=== PATIENT | female | born 1940 | race Caucasian/White ===

== ENCOUNTER 2018-08-13 10:36 | Outpatient (CLI) | payer OTHER | END 2018-08-13 10:37 | disposition home or self-care (01) | LOC: RAD 10:36 ==

== ENCOUNTER 2018-10-29 09:46 | Emergency (ER) | payer OTHER ==
[2018-10-29 09:59] VITALS: BMI 34.7
--- NOTE | 2018-10-29 10:28 | ED PDOC ---
Arrival/HPI - General Chief Complaint: Finger,Hand,&Wrist Time Seen by Provider: 10/29/18 09:54 Historian: Patient - History of Present Illness Narrative History of Present Illness (Text): 10/29/18 10:20 78-year-old female presents today with a one-week history of left wrist pain. Patient states 1 week ago she fell injuring the left wrist. Patient states she went to her doctor and had outpatient x-rays of the left wrist done on 10/23/18. Since then the patient has been in a left wrist Velcro splint. Patient received a call today that there was a possible fracture and the patient needs a CAT scan of the wrist for further evaluation. Patient presents today requesting CAT scan of the wrist due to continued pain of the left wrist status post fall. Patient denies numbness or tingling in the extremity. She is complaining of severe pain over the radial aspect of the wrist. She has limited range of motion of the wrist. Patient states the pain radiates up into the forearm. Patient states she has been taking Tylenol with codeine for pain. Past Medical History - Provider Review Nursing Documentation Reviewed: Yes - Travel History Have you recently traveled outside [place] w/in the past 3 mons?: No - Infectious Disease Hx of Infectious Diseases: None - Tetanus Immunization Tetanus Immunization: Unknown - Reproductive Menopause: Yes - Cardiac Hx Cardiac Disorders: Yes ((Denies hx. of cardiac stent)) Hx Hypertension: Yes Other/Comment: - Irregular heart beat. - Dyslipidemia - Pulmonary Hx Respiratory Disorders: No (Denies hx. of Asthma or COPD) - Neurological Hx Neurological Disorder: Yes HX Cerebrovascular Accident: Yes (06/05/17: Acute Ischemic Stroke) - HEENT Hx Cataracts: Yes (Cataract surgery (left eye)) Hx Glaucoma: Yes - Endocrine/Metabolic Hx Diabetes Mellitus Type 2: Yes - Hematological/Oncological Hx AIDS: No - Musculoskeletal/Rheumatological Hx Back Pain: Yes (Chronic back pain) - Gastrointestinal Hx Constipation: Yes (Chronic constipation) - Psychiatric Hx Substance Use: No - Surgical History Hx Appendectomy: Yes Hx Cataract Extraction: Yes (Cataract surgery (left eye)) Other/Comment: - Partial colon resection for abscess (per dgt: 2/3 instestine removed). - Surgery of the pancreas. - - Anesthesia Hx Anesthesia: Yes Hx Anesthesia Reactions: No Hx Malignant Hyperthermia: No Family/Social History - Physician Review Nursing Documentation Reviewed: Yes Family/Social History: Unknown Family HX Smoking Status: Former Smoker Hx Alcohol Use: No Hx Substance Use: No Allergies/Home Meds Allergies/Adverse Reactions: Allergies Penicillins Allergy (Severe, Verified 10/29/18 10:17) SWELLING Swelling of throat and shortness of breath Home Medications: Home Meds Medication Instructions Recorded Confirmed Apixaban [Eliquis] 5 mg PO BID 06/08/17 06/08/17 Aspirin [Aspirin Chewable] 81 mg PO DAILY 06/08/17 06/08/17 Atorvastatin [Lipitor] 40 mg PO HS 06/08/17 06/08/17 Docusate Sodium [Colace] 100 mg PO BID PRN 06/08/17 06/08/17 Pantoprazole Sodium [Protonix] 40 mg PO DAILY 06/08/17 06/08/17 Valsartan [Diovan] 320 mg PO DAILY 06/08/17 06/08/17 diltiaZEM [Cardizem] 120 mg PO DAILY 06/08/17 06/08/17 Review of Systems - Review of Systems Constitutional: absent: Fatigue, Fevers Respiratory: absent: SOB, Cough Cardiovascular: absent: Chest Pain, Palpitations Gastrointestinal: absent: Abdominal Pain, Nausea, Vomiting Musculoskeletal: Arthralgias (left wrist pain) Psychiatric: absent: Anxiety, Depression Physical Exam Vital Signs Reviewed: Yes Vital Signs Temp Pulse Resp BP Pulse Ox 10/29/18 09:59 98.4 F 67 18 117/73 96 Temperature: Afebrile Blood Pressure: Normal Pulse: Regular Respiratory Rate: Normal Appearance: Positive for: Well-Appearing, Non-Toxic, Comfortable Pain Distress: None Mental Status: Positive for: Alert and Oriented X 3 - Systems Exam Head: Present: Atraumatic Mouth: Present: Moist Mucous Membranes Neck: Present: Normal Range of Motion Respiratory/Chest: Present: Clear to Auscultation, Good Air Exchange. No: Respiratory Distress, Accessory Muscle Use Cardiovascular: Present: Regular Rate and Rhythm, Normal S1, S2. No: Murmurs Upper Extremity: Present: NORMAL PULSES, Tenderness (left wrist; + ttp over snuff box, radial aspect. + edema), Swelling, Neurovascularly Intact. No: Normal ROM (decreased flexion/extension of wrist, decreased supination. ), Erythema Neurological: Present: GCS=15, Speech Normal Skin: Present: Warm, Dry, Normal Color. No: Rashes Psychiatric: Present: Alert, Oriented x 3 Medical Decision Making ED Course and Treatment: 10/29/18 10:23 Patient nontoxic well-appearing in no distress with stable vital signs. Patient is currently in velcro splint Patient has outpatient x-ray of the wrist report which shows possible ulnar styloid fracture. CAT scan requested. Patient has tenderness over the radial aspect of the wrist/snuffbox tenderness. We will do the CAT scan of the wrist for further evaluation. CT; BONES: There is an apparent transverse lucency in the lateral aspect of the trapezoid. There is no acute displaced fracture or bone destruction. Bone alignment is normal there is an. There is diffuse bone demineralization. There is a negative ulnar variance. 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 The remaining intercarpal joint spaces are preserved. There is calcification in the triangular fibrocartilage. SOFT TISSUES: The periarticular muscles and soft tissues are grossly unremarkable. There is mild soft tissue swelling at the wrist joint. IMPRESSION: No acute displaced fracture or dislocation. Apparent transverse lucency in the lateral aspect of the trapezoid could represent a nondisplaced fracture in the appropriate setting. Clinical follow- up is advised Patient placed in volar short arm posterior splint and thumb spica. I discussed all results with patient advised to followup with the orthopedist for the next 2 days. Return if symptoms worsen persist or new symptoms develop Patient verbalizes understanding of discharge instructions and need for immediate followup. All aspects of this case were discussed the attending of record. Impression: wrist fracture Continue medications as prescribed for pain. Rest, ice, compression, elevation Followup with the orthopedist within the next 2 days Followup with primary care physician within the next 2 days Return if any other concerning symptoms develop - RAD Interpretation Radiology Orders: 10/29/18 10:06 EXT UPPER W/O CONTRAST LEFT [CT] Stat - Medication Orders Current Medication Orders: Discontinued Medications Tramadol HCl (Ultram) 50 mg PO STAT STA Stop: 10/29/18 10:11 Procedures - Splinting Location: left wrist Hand-Made Type: fiberglass Splint: thumb spica (and volar splint applied.) Disposition/Present on Arrival - Present on Arrival Any Indicators Present on Arrival: No History of DVT/PE: No History of Uncontrolled Diabetes: No Urinary Catheter: No History of Decub. Ulcer: No History Surgical Site Infection Following: None - Disposition Have Diagnosis and Disposition been Completed?: Yes Diagnosis: Wrist fracture Disposition: HOME/ ROUTINE Disposition Time: 10:28 Patient Plan: Discharge Patient Problems: Current Active Problems Problem Status Onset Wrist fracture Acute Condition: GOOD Discharge Instructions (ExitCare): Wrist Fracture (DC) Additional Instructions: Continue medications as prescribed for pain. Rest, ice, compression, elevation Followup with the orthopedist within the next 2 days Followup with primary care physician within the next 2 days Return if any other concerning symptoms develop Referrals: [facility] [Outside] - Follow up with primary [facility] [Outside] - Follow up with primary [facility] [Outside] - Follow up with primary Jarrod Thomson MD [Staff Provider] - Follow up with primary Casey Peraza DO [Staff Provider] - Follow up with primary Matthew Vaughn MD [Staff Provider] - Follow up with primary Arnold Yanez III, MD [Medical Doctor] - Follow up with primary Forms: [employer] ([place])
--- NOTE | 2018-10-29 12:03 | CT ---
Date of service: 10/29/2018 PROCEDURE: CT of the left wrist without contrast. HISTORY: Wrist pain, fall r/o fx. xray shows possible fx COMPARISON: None available. TECHNIQUE: Contiguous axial images of the left wrist were obtained. Coronal and sagittal reformats were generated. Radiation dose: Total exam DLP = 136.96 mGy-cm. This CT exam was performed using one or more of the following dose reduction techniques: Automated exposure control, adjustment of the mA and/or kV according to patient size, and/or use of iterative reconstruction technique. FINDINGS: BONES: There is an apparent transverse lucency in the lateral aspect of the trapezoid. There is no acute displaced fracture or bone destruction. Bone alignment is normal there is an. There is diffuse bone demineralization. There is a negative ulnar variance. 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 The remaining intercarpal joint spaces are preserved. There is calcification in the triangular fibrocartilage. SOFT TISSUES: The periarticular muscles and soft tissues are grossly unremarkable. There is mild soft tissue swelling at the wrist joint. IMPRESSION: No acute displaced fracture or dislocation. Apparent transverse lucency in the lateral aspect of the trapezoid could represent a nondisplaced fracture in the appropriate setting. Clinical follow-up is advised
[2018-10-29 12:58] VITALS: BP 131/79; PULSE 81; RESP 19; TEMP 98.1; O2SAT 99
== END 2018-10-29 12:57 | disposition home or self-care (01) ==
LOC: ED 09:46
DX: S62.102A Fracture of unspecified carpal bone, left wrist, initial encounter for closed fracture (principal); W19.XXXA Unspecified fall, initial encounter; E11.9 Type 2 diabetes mellitus without complications; I10 Essential (primary) hypertension; E78.5 Hyperlipidemia, unspecified; Z87.891 Personal history of nicotine dependence; Z86.73 Personal history of transient ischemic attack (TIA), and cerebral infarction without residual deficits